=== PATIENT | female | born 1960 | race Caucasian/White ===

== ENCOUNTER 2024-04-18 13:34 | Outpatient (CLI) | payer OTHER | END 2024-04-18 13:38 | disposition home or self-care (01) | LOC: SONOGRAMA 13:34 | PROVIDERS: ATTEND Pathology Anatomic Pathology & Clinical Pathology | DX: D44.0 Neoplasm of uncertain behavior of thyroid gland (principal); E04.2 Nontoxic multinodular goiter ==